=== PATIENT | male | born 1990 | race Two or more races ===

== ENCOUNTER 2024-03-17 18:37 | Emergency (ER) | payer BC | END 2024-03-17 23:57 | disposition home or self-care (01) | LOC: ERS 18:37 → EDBD 18:37 → ERS 23:57 | DX: F41.9 Anxiety disorder, unspecified (principal); R00.2 Palpitations; F17.210 Nicotine dependence, cigarettes, uncomplicated | CPT/HCPCS: 71045; 93005 ==